=== PATIENT | male | born 1970 | race Caucasian/White ===

== ENCOUNTER 2019-09-01 12:50 | Observation (INO) | payer MEDICAID ==
[~2019-09-01] VITALS: Ht 172.7 cm; Wt 96.2 kg
[~2019-09-01 12:50] MED LIST: BACTRIM DS1 TAB OR; NAPROSYN500 MG OR
--- NOTE | 2019-09-01 12:50 | NUR ---
PT REFUSED WHEELCHAIR AND AMUBALTED TO ROOM WITH A STEADY GAIT.
--- NOTE | 2019-09-01 12:59 | NUR ---
POSTERIOR EKG COMPLETED PER MD VERBAL ORDER.
[2019-09-01 13:08] LABS: HEMATOCRIT 45.5 % (39.0-50.0); HEMOGLOBIN 16.5 g/dl (14.0-18.0); IMMATURE GRANULOCYTES 0.5 % (0.0-5.0); MEAN CELL VOLUME 89.4 fL CALC (80.0-100.0); MEAN CORPUSCULAR HGB 32.4 pG CALC (26.0-32.0); MEAN CORPUSCULAR HGB CONC 36.3 g/dL CAL (32.0-36.0); NEUT# 5.5 thou/uL (1.82-7.42); RED BLOOD COUNT 5.09 mill/uL (4.70-6.10); RED CELL DISTRI WIDTH 12.4 % (11.5-15.5)
[2019-09-01] MEDS ORDERED: ONE A DAY MENS1 CHW PO (13:15)
[2019-09-01 13:28] LABS: ALBUMIN 5.2 g/dL (3.2-5.0); ALKALINE PHOSPHATASE 52 u/l (38-126); ANION GAP 16 (6-22 (CALC)); BILIRUBIN, TOTAL 1.1 mg/dL (0.0-1.4); BUN 11 mg/dL (9-20); BUN/CREATININE RATIO 11 (12-20 (CALC)); CARBON DIOXIDE 25 mmol/l (22-30); CHLORIDE 104 mmol/l (95-108); GFR > 60 ML/MIN (>=60 (CALC)); GFR FOR AFR.AMER. > 60 ML/MIN (>=60 (CALC)); POTASSIUM 4.3 mmol/l (3.5-5.1); SGOT/AST 36 u/l (17-59); SODIUM 140 mmol/l (137-146); TOTAL PROTEIN 8.7 g/dL (6.3-8.2)
--- NOTE | 2019-09-01 14:00 | NUR ---
PT RESTING ON STRETCHER; NO S/S OF DISTRESS NOTED; PT DENIES ANY CP AT THIS TIME; VSS; WILL CONTINUE TO MONITOR
--- NOTE | 2019-09-01 15:00 | NUR ---
PT RESTING ON STRETCHER; NO S/S OF DISTRESS NOTED; VSS; PT ADVISED OF CONTINUED WAIT TIME
--- NOTE | 2019-09-01 15:00 | NUR ---
PT RESTING ON STRETCHER; NO SS
--- NOTE | 2019-09-01 15:17 | NUR ---
DR PARKER AT BEDSIDE TO DISCUSS POC AND FINDINGS
--- NOTE | 2019-09-01 15:37 | NUR ---
PT MEDICATED WITH LABETOLOL 5MG PER MAR; PT UPDATED ON POC AND CONTINUED WAIT TIME; WILL CONTINUE TO MONITOR
--- NOTE | 2019-09-01 16:15 | NUR ---
ATTEMPTED TO CALL REPORT AT THIS TIME
--- NOTE | 2019-09-01 17:00 | NUR ---
PT RESTING ON STRETCHER; NO S/S OF DISTRESS NOTED; PT DENIES ANY NEEDS AT THIS TIME; ADVISED OF CONTINUED WAIT TIME
--- NOTE | 2019-09-01 17:28 | NUR ---
Admission Note Report Given to: KATYA ADDISON Transported by: X Wheelchair Stretcher Transported with: X Nurse Transporter X Patent IV O2 X Slasher Runner Location: ICU X [facility]
[2019-09-01 17:30] VITALS: BP 152/90
--- NOTE | 2019-09-01 17:30 | NUR ---
PT ARRIVED TO MED/SURG ROOM 268 IN STABLE CONDITION VIA WHEELCHAIR ACCOMPANIED BY DONG SANTOS;PT AMBULATED TO STANDING SCALE AND BEDSIDE WITH A STEADY GAIT,WT AND VS OBTAINED BY QUE MORLEY;PT A&O X3,ORIENTED TO ROOM AND CALL LIGHT SYSTEM;PT REPORTS MIDSTERNAL CHEST PRESURRE THAT STARTED THIS MORNING AND LASTED A FEW MINS;PT DENIES ANY CURRENT PAIN OR DISCOMFORTS,PAIN SCALE AND REPORTING EDUCATED;RESPIRATIONS EVEN AND UNLABORED ON RA,CLEAR LUNG SOUNDS;ABDOMEN SOFT ON PALPATION AND ACTIVE IN ALL 4 QUADRANTS,LAST BM 09/01/19;STRONG PEDAL PULSES;SKIN INTACT;TELE MONITORING IN PLACE;#20G TO LAC FLUSHED AND PATENT,SITE APPEARS HEALTHY;PT DENIES ANY ADDITIONAL NEEDS AT THIS TIME AND IS ENCOURAGED TO CALL FOR ASSISTANCE IF NEEDED;CALL LIGHT IN REACH;WILL CONTINUE TO MONITOR
--- NOTE | 2019-09-01 19:00 | NUR ---
RECEIVED REPORT FROM NURSE ADDISON PATIENT RESTING IN BED, WATCHING TV, DENIES PAIN OR DISCOMFORTS AT THIS TIME, CALL LIGHT AT REACH.
[2019-09-01 19:35] VITALS: BP 153/96
--- NOTE | 2019-09-01 21:00 | NUR ---
RES ALERT AND ORIENTED, ABLE TO MAKE NEEDS KNOWN, WITH SALINE LOCK ON LAC PATENT FLUSHES WELL, DENIES CHEST DISCOMFORTS, LBM 08/31, REMAINS ON TEL SR 70, COMFORTABLE CALL LIGHT AT REACH.
[2019-09-02 00:22] VITALS: BP 143/92
--- NOTE | 2019-09-02 01:27 | NUR ---
PATIENT RESTING IN BED EYES CLOSED WITH EVEN UNLABORED BREATHING CALL LIGHT AT REACH.
[2019-09-02 03:25] VITALS: BP 123/81
--- NOTE | 2019-09-02 04:20 | NUR ---
PATIENT RESTING IN BED WITH EYES CLOSED NO DISCOMFORTS NOTED CALL LIGHT AT REACH.
[2019-09-02 06:18] LABS: CHOLESTEROL HDL RATIO 3.2 (<4.4 (CALC)); MAGNESIUM 2.4 mg/dL (1.6-2.3)
--- NOTE | 2019-09-02 07:00 | NUR ---
REPORT RECEIVED FROM DONG GONZALEZ. PT RESTING IN BED SEMI FOWLERS; ALERT AND ORIENTED. DENIES CHEST PAIN. RESPIRATIONS EVEN AND UNLABORED ON ROOM AIR. PLAN OF CARE REVEIWED. PT ENCOURAGED TO VERBALIZE CONCERNS. PLEASANT AND STATES HE IS READY TO BE DISCHARGED. SAFETY MEASURES IN PLACE. CALL LIGHT WITHIN REACH.
[2019-09-02 07:53] VITALS: BP 158/100
[2019-09-02] MEDS ORDERED: AMLODIPINE BESYL5 MG PO (08:49)
--- NOTE | 2019-09-02 09:54 | NUR ---
AMLODIPINE GIVEN AND EDUCATED ON MED; ALSO EDUCATED ON TAKING BLOOD PRESSURE AND HEART RATE AND S/S OF HYPOTENSION AND HYPERTENSION.
[2019-09-02 11:13] VITALS: BP 158/108
[2019-09-02 11:19] VITALS: BP 158/108
--- NOTE | 2019-09-02 11:46 | NUR ---
IV site discontinued, cath intact. No edema , no redness, voices no discomfort.
--- NOTE | 2019-09-02 11:47 | NUR ---
Discharge instructions given. Patient verbalizes understanding of same. Discharged in stable condition via Ambulatory to Home with family. All belongings sent with pt.
== END 2019-09-02 11:49 | disposition home or self-care (01) ==
LOC: ED 12:50 → ED-I 13:20 → ED 15:24 → ED-I 15:25 → MS2 15:25
PROVIDERS: Family Medicine; ADMIT Internal Medicine; ATTEND Internal Medicine
DX: R07.9 Chest pain, unspecified (principal); I10 Essential (primary) hypertension; F17.290 Nicotine dependence, other tobacco product, uncomplicated
CPT/HCPCS: G0378

== ENCOUNTER 2021-01-01 03:32 | Emergency (ER) | payer MEDICAID ==
[~2021-01-01 03:32] MED LIST changes: +AMLODIPINE BESYL5 MG PO; +ONE A DAY MENS1 CHW PO
[2021-01-01] MEDS ORDERED: LISINOPRIL20 MG PO (03:53)
[2021-01-01 04:20] LABS: IMMATURE GRANULOCYTES 0.4 % (0.0-5.0); MEAN CELL VOLUME 89.4 fL CALC (80.0-100.0); MEAN CORPUSCULAR HGB 32.1 pG CALC (26.0-32.0); MEAN CORPUSCULAR HGB CONC 35.9 g/dL CAL (32.0-36.0); NEUT# 4.03 thou/uL (1.82-7.42); RED BLOOD COUNT 4.05 mill/uL (4.70-6.10); RED CELL DISTRI WIDTH 11.9 % (11.5-15.5)
[2021-01-01 04:24] LABS: HEMATOCRIT 36.2 % (39.0-50.0)
[2021-01-01 04:31] LABS: ALBUMIN 3.9 g/dL (3.2-5.0); ALKALINE PHOSPHATASE 78 u/l (38-126); ANION GAP 12 (6-22 (CALC)); BILIRUBIN, TOTAL 1.1 mg/dL (0.0-1.4); BUN 14 mg/dL (9-20); BUN/CREATININE RATIO 14 (12-20 (CALC)); CARBON DIOXIDE 29 mmol/l (22-30); CHLORIDE 95 mmol/l (95-108); CPK 831 u/l (52-200); GFR > 60 ML/MIN (>=60 (CALC)); GFR FOR AFR.AMER. > 60 ML/MIN (>=60 (CALC)); MAGNESIUM 2.2 mg/dL (1.6-2.3); POTASSIUM 3.3 mmol/l (3.5-5.1); SGOT/AST 65 u/l (17-59); SODIUM 133 mmol/l (137-146); TOTAL PROTEIN 7.1 g/dL (6.3-8.2)
[2021-01-01] MEDS ORDERED: ROBITUSSIN AC10 ML PO (05:21)
[2021-01-01 05:50] VITALS: BP 125/81
== END 2021-01-01 05:47 | disposition home or self-care (01) ==
LOC: ED 03:32
PROVIDERS: Family Medicine
DX: U07.1 COVID-19 (principal)